=== PATIENT | female | born 1970 | race Caucasian/White ===

== ENCOUNTER 2016-12-03 10:28 | Emergency (ER) | payer SELFPAY ==
[2016-12-03] MEDS ORDERED: Dexamethasone 4 mg/ml Vial ONE (11:02)
[2016-12-03] MEDS ORDERED: Ketorolac Tromethamine 30 MG/ML VIAL ONE (11:02)
== END 2016-12-03 11:32 | disposition home or self-care (01) ==
LOC: NAV ERS 10:28
DX: H10.13 Acute atopic conjunctivitis, bilateral (principal); J30.9 Allergic rhinitis, unspecified; F17.210 Nicotine dependence, cigarettes, uncomplicated
CPT/HCPCS: 96372; J1100; J1885